=== PATIENT | female | born 1975 | race Hispanic/Latino ===

== ENCOUNTER 2016-05-16 08:43 | Emergency (ER) | payer OTHER, SELFPAY ==
[2016-05-16 09:07] LABS: Bilirubin Negative (Negative); Blood, Urine Negative (Negative); Glucose, Urine (Dipstick) 250 mg/dL (Negative); Ketone, Urine Negative (Negative); Nitrite Negative (Negative); Protein, Urine (Dipstick) Trace mg/dL (Neg-Trace)
[2016-05-16] MEDS ORDERED: Ondansetron HCl/PF 4 MG/2 ML Vial ONE (09:24)
[2016-05-16] MEDS ORDERED: Sodium Chloride 0.9% 1,000 ML ONE (09:24)
[2016-05-16 09:26] LABS: pH (venous) 7.46 (7.34-7.37)
[2016-05-16 09:27] LABS: Base Excess -0.2 mEq/L (0 (+/- 2.5))
[2016-05-16 09:29] LABS: #Basophils 0.1 thou/uL (0.0-0.2); #Eosinphils 0.5 thou/uL (0.0-0.7); #Lymphocytes 2.3 thou/uL (1.20-3.40); #Monocytes 0.8 thou/uL (0.11-0.59); #Neutrophils 6.4 thou/uL (1.40-6.50); %Basophils 0.8 % (0.0-1.0); %Lymphocytes 22.6 % (21.0-51.0); %Monocytes 7.7 % (0.0-10.0); Hematocrit 39.1 % (36.0-47.0); Mean Platelet Volume 6.8 fL (7.4-10.4); Red Blood Cell (RBC) Count 4.66 mill/uL (4.20-5.40)
--- NOTE | 2016-05-16 09:38 | RAD ---
RADIOGRAPH CHEST 1 VIEW: HISTORY: 40-year-old female with dizziness and vomiting. FINDINGS: There is cardiomegaly. There is no evidence of air space density, pulmonary edema, or pneumothorax. The lateral costophrenic angles are sharp. IMPRESSION: 1) No acute pulmonary findings. 2) Cardiomegaly without congestive heart failure. jn [] POS: OFF
[2016-05-16 09:49] LABS: ALT (SGPT) 55 U/L (0-55); AST (SGOT) 48 U/L (5-34); Alkaline Phosphatase 94 U/L (40-150); Anion Gap 14 mmol/L (10-20); BUN (Urea Nitrogen) 12 mg/dL (7.0-18.7); Bilirubin, Total 0.5 mg/dL (0.2-1.2); Calc. Creatinine Clearance 0 mL/min (70-130); Calcium 8.8 mg/dL (7.8-10.44); Carbon Dioxide 22 mmol/L (22-29); Chloride 104 mmol/L (98-107); Estimated GFR-MDRD Greater than 90; Globulin 3.5 g/dL (2.4-3.5); Lipase 16 U/L (8-78); Magnesium 1.8 mg/dL (1.6-2.6); Phosphorus 3.1 mg/dL (2.3-4.7); Protein, Total 7.2 g/dL (6.0-8.3)
--- NOTE | 2016-05-16 10:00 | CT ---
CT OF THE BRAIN WITHOUT CONTRAST: Date: 05/16/16 COMPARISON: None. HISTORY: Dizziness with vomiting and pain in back of head. TECHNIQUE: Multiple contiguous axial images were obtained in a CT of the brain without contrast. Sagittal and c oronal reformats were performed. FINDINGS: The brain is normal in morphology and attenuation without focal lesions or confluent areas of infarc tion. There is no evidence of hydrocephalus, intracranial hemorrhage, or extra-axial fluid collectio n. The calvarium and overlying soft tissues are unremarkable. The visualized paranasal sinuses and mast oid air cells are well aerated. IMPRESSION: No evidence of acute intracranial abnormality. POS: [facility]
== END 2016-05-16 10:26 | disposition home or self-care (01) ==
LOC: NAV ERS 08:43
DX: N17.9 Acute kidney failure, unspecified (principal); E86.0 Dehydration; E11.65 Type 2 diabetes mellitus with hyperglycemia; N39.0 Urinary tract infection, site not specified; I10 Essential (primary) hypertension; J45.909 Unspecified asthma, uncomplicated
CPT/HCPCS: 36416; 70450; 71010; 80053; 81003; 82010; 82805; 83690; 83735; 84100; 85025; 87086; 93005; 96361; 96374; 36415-59; J2405; J7050

== ENCOUNTER 2016-05-29 22:30 | Emergency (ER) | payer SELFPAY ==
[2016-05-29] MEDS ORDERED: Insulin Regular 300 UNITS/3 ML VIAL ONE (23:04)
[2016-05-29 23:08] LABS: #Basophils 0.1 thou/uL (0.0-0.2); #Eosinphils 0.5 thou/uL (0.0-0.7); #Lymphocytes 2.8 thou/uL (1.20-3.40); #Neutrophils 6.5 thou/uL (1.40-6.50); %Basophils 0.9 % (0.0-1.0); %Eosinophils 4.8 % (0.0-10.0); %Lymphocytes 25.8 % (21.0-51.0); %Monocytes 9.2 % (0.0-10.0); Hematocrit 41.1 % (36.0-47.0); Mean Platelet Volume 7.4 fL (7.4-10.4); Red Blood Cell (RBC) Count 4.94 mill/uL (4.20-5.40); White Blood Cell (WBC) Count 10.9 thou/uL (4.8-10.8)
[2016-05-29 23:24] LABS: Anion Gap 17 mmol/L (10-20); BUN (Urea Nitrogen) 13 mg/dL (7.0-18.7); Calc. Creatinine Clearance 0 mL/min (70-130); Calcium 9.5 mg/dL (7.8-10.44); Carbon Dioxide 22 mmol/L (22-29); Chloride 98 mmol/L (98-107); Estimated GFR-MDRD 81
== END 2016-05-30 00:25 | disposition home or self-care (01) ==
LOC: NAV ERS 22:30
DX: E11.65 Type 2 diabetes mellitus with hyperglycemia (principal); I10 Essential (primary) hypertension; J45.909 Unspecified asthma, uncomplicated; Z79.84 Long term (current) use of oral hypoglycemic drugs; Z87.442 Personal history of urinary calculi
CPT/HCPCS: 36415; 36416; 80048; 82010; 85025; 96361; 96374; 96376; J1815

== ENCOUNTER 2019-10-04 12:05 | Emergency (ER) | payer SELFPAY ==
--- NOTE | 2019-10-04 12:39 | RAD ---
RIGHT WRIST 3 VIEWS: HISTORY: Right wrist pain, injury FINDINGS: No acute fracture or dislocation is identified. If symptoms do not improve, a follow-up exam should be obtained in 7-10 days.
== END 2019-10-04 13:20 | disposition home or self-care (01) ==
LOC: NAV ERS 12:05
DX: S66.902A Unspecified injury of unspecified muscle, fascia and tendon at wrist and hand level, left hand, initial encounter (principal); E11.9 Type 2 diabetes mellitus without complications; I10 Essential (primary) hypertension; Z79.1 Long term (current) use of non-steroidal anti-inflammatories (NSAID); X50.0XXA Overexertion from strenuous movement or load, initial encounter